=== PATIENT | male | born 1995 | race Hispanic/Latino ===

== ENCOUNTER 2016-10-16 03:47 | Emergency (ER) | payer OTHER ==
[2016-10-16 04:54] LABS: BASO % 0.2 % (0.0-1.0); EOS # 0.2 K/mm3 (0.0-0.50); EOS % 1.5 % (0.0-3.0); LARGE UNSTAINED CELL # 0.1 K/mm3 (0.0-0.4); LYMPH # 0.4 K/mm3 (1.5-6.5); MEAN CORPUSCULAR HEMOGLOBIN 29.3 pg (27.0-33.0); MEAN CORPUSCULAR VOLUME 86.3 fl (80.0-96.0); MONO # 0.5 K/mm3 (0.0-0.8); MONO % 4.2 % (0.0-5.0); NEUTROPHILS # 9.4 K/mm3 (1.8-7.7); NEUTROPHILS % 89.1 % (36.0-66.0); PLATELET COUNT, AUTOMATED 297 k/mm3 (150-450); RED CELL DISTRIBUTION WIDTH 12.1 % (11.5-14.5); WHITE BLOOD COUNT 10.6 K/mm3 (4.0-10.0)
[2016-10-16 05:57] LABS: ALBUMIN 3.8 GM/DL (3.2-5.2); ALBUMIN/GLOBULIN RATIO 1.09 (1.00-1.93); ALKALINE PHOSPHATASE 101 U/L (45-117); ALT/SGPT 42 U/L (12-78); AMYLASE 59 U/L (25-115); ANION GAP 11 MEQ/L (8-16); AST/SGOT 29 U/L (15-37); BILIRUBIN,DIRECT 0.2 MG/DL (0.0-0.2); BILIRUBIN,TOTAL 0.7 MG/DL (0.2-1.0); BLOOD UREA NITROGEN 20 MG/DL (7-18); CALCIUM LEVEL 8.8 MG/DL (8.5-10.1); CARBON DIOXIDE LEVEL 24 MEQ/L (21-32); CHLORIDE LEVEL 106 MEQ/L (98-107); CREATININE FOR GFR 0.96 MG/DL (0.70-1.30); GLUCOSE, FASTING 108 MG/DL (70-105); POTASSIUM SERUM 4.2 MEQ/L (3.5-5.1); SODIUM LEVEL 141 MEQ/L (136-145); TOTAL PROTEIN 7.3 GM/DL (6.4-8.2)
[2016-10-16] MEDS ORDERED: ONDANSETRON 4 MG ORAL DISINTEGRATING TAB (S0181) As Ordered ONE (07:10)
[2016-10-16] MEDS ORDERED: ACETAMINOPHEN TAB 650MG DOSE (2X325MG) As Ordered ONE (07:28)
[2016-10-16] MEDS ORDERED: GASTROGRAFIN SOLUTION 30ML (Q9963) As Ordered ONE (07:40)
[2016-10-16] MEDS ORDERED: ISOVUE-370 76% 100ML VIAL (Q9967) As Ordered ONE (09:04)
--- NOTE | 2016-10-16 10:14 | REP ---
CT abdomen and pelvis with IV and oral contrast 10/16/2016 Indication: Lower abdominal pain Comparison: None Technique: After drinking two cups of oral contrast, each containing 10 ml gastrographin, 100 ml Isovue 370 mg/ml was injected intravenously. 3 mm spiral axial sections were performed through the abdomen and pelvis Findings: small amount of parenchymal disease within the anterior medial aspect of the right middle lobe is consistent with atelectasis and/or scarring. Liver, spleen, pancreas, gallbladder are within normal limits. There is no biliary dilatation. Adrenal glands are normal. Kidneys are without hydronephrosis or obstructing ureteral calculi bilaterally. There is moderate gastric distension with stomach containing a large amount of oral contrast and small amount of air. The small bowel is without obstruction. There are multiple fluid-filled loops of small bowel , less than 3 cm in diameter. The terminal ileum and distal ileum are fluid-filled. The appendix is without inflammation . Abdominal aorta is of normal course and caliber. There are few ileocolic lymph nodes which are nonspecific. There is small amount of fluid and under distension seen throughout colon with minimal generalized mural thickening. There is an air-fluid level within the rectosigmoid colon. There is no free air or ascites. Impression 1. Findings most compatible with a gastroenteritis with gastric distension, fluid-filled loops of small bowel, under distended colon likely in spasm, with mild generalized mural thickening. There is also an air-fluid level in the rectosigmoid colon. No free air or ascites. 2. Unremarkable appendix and gallbladder 3. Parenchymal disease within the anterior medial aspect of right middle lobe most compatible with atelectasis and/or scarring Signed by Mirta Powell MD 10/16/2016 10:05 A
--- NOTE | 2016-10-16 10:26 | EDDOCDS ---
Nurse's Notes [facility] Name: Gary Chapman Age: 21 yrs Sex: Male : 1995 Arrival Date: 10/16/2016 Time: 03:47 Bed 12 Private MD: Diagnosis: Nausea and vomiting;Diarrhea, unspecified Presentation: 10/16 03:57 Presenting complaint: Patient states: he has had vomiting and diarrhea since last cz night. Risk factors: the patient reports not having a history of previous torsion. Adult Sepsis Screening: The patient does not have new or worsening altered mentation. Patient's respiratory rate is less than 22. Systolic blood pressure is greater than 100. Patient has a qSOFA score of 0- Negative Sepsis Screen. Suicide/Homicide risk assessment- the patient denies having any suicidal and/or homicidal ideations and does not present with any other emotional, behavioral or mental health complaints. 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 Transition of care: patient was not received from another setting of care. 03:57 Acuity: EPIFANIO Level 3 cz 03:57 Method Of Arrival: Walkin/Carried/Asstd cz Triage Assessment: 03:58 General: Appears distressed, uncomfortable. Pain: Location: abdomen Pain currently is 6 cz out of 10 on a pain scale. Pt Declines HIV testing. Historical: - Allergies: No known drug Allergies; - Home Meds: 1. none - PMHx: none; - PSHx: none; - Social history: Smoking status: Patient states was never smoker of tobacco. No barriers to communication noted, The patient speaks fluent Serbian, Speaks appropriately for age. - Family history: Not pertinent, No immediate family members are acutely ill. - : The pt / caregiver states he / she is not on anticoagulants. Home medication list is obtained from the patient. - Exposure Risk Screening:: None identified. Screenin:46 Screening information is obtained from the patient. Fall risk: No risks identified. mlc Assistance ADL's: requires no assistance with activities of daily living. Abuse/DV Screen: The patient / caregiver reports he/she is: not in a situation that causes fear, pain or injury. Nutritional screening: No deficits noted. Advance Directives: Currently, there is no health care proxy. home support is adequate. Assessment: 05:03 General: Appears in no apparent distress, comfortable, Behavior is cooperative. Pain: mlc Location: abdomen Quality of pain is described as pressure. Neurological: Level of Consciousness is awake, alert, Oriented to person, place, time. Respiratory: Airway is patent Respiratory effort is even, unlabored, Respiratory pattern is regular, Breath sounds are diminished in left posterior lower lobe Reports cough that is productive. GI: Abdomen is non- distended Bowel sounds present X 4 quads. Abd is soft X 4 quads Reports diarrhea, nausea, vomiting. Derm: Skin is pink, warm & dry. 06:46 Reassessment: Patient appears in no apparent distress at this time. Patient states mlc symptoms have not improved. pt resting comfortably in bed, resp easy/unlabored. . 07:20 General: Appears in no apparent distress, comfortable, Behavior is appropriate for age, ja5 cooperative. Pain: Location: right lower quadrant and left lower quadrant Pain currently is 3 out of 10 on a pain scale. Quality of pain is described as pressure. Neurological: Level of Consciousness is alert, confused, Oriented to person, place, time. Cardiovascular: Capillary refill < 3 seconds Heart tones S1 S2 present. Respiratory: Airway is patent Respiratory effort is even, unlabored, Respiratory pattern is symmetrical, Breath sounds are clear bilaterally. GI: Abdomen is non- distended Bowel sounds present X 4 quads. Abd is soft X 4 quads Denies nausea. Derm: Skin is pink, warm & dry. 08:26 General: Pt resting on stretcher. No distress noted at this time. Color pink, skin warm jc4 and dry. Respirations easy and full. IVF infusing well. Pt watching television. Pt tolerating contrast well. 09:28 General: Patient just returned from CT, tolerated procedure well. Back in room with no ja5 complaints at this time.. 10:23 General: Appears in no apparent distress, comfortable, Behavior is cooperative. Pain: bcj Location: abdomen Pain currently is 2 out of 10 on a pain scale. Derm: Skin is pink, warm & dry. Vital Signs: 03:58 BP 110 / 66; Pulse 112; Resp 16; Temp 99.8(TE); Pulse Ox 96% on R/A; Weight 74.39 kg; cz Height 5 ft. 5 in. (165.10 cm); 07:16 BP 99 / 50; Pulse 96; Resp 16; Temp 101(O); Pulse Ox 95% ; Pain 3/10; ja5 08:44 BP 106 / 54; Pulse 98; Resp 16; Temp 98.5(O); Pulse Ox 99% ; Pain 0/10; ja5 10:21 BP 106 / 52 RA Supine (auto/lg); Pulse 90; Resp 16; Temp 98.7(O); Pulse Ox 96% on R/A; tk Pain 0/10; 03:58 Body Mass Index 27.29 (74.39 kg, 165.10 cm) cz Vitals: 03:58 Log In Time: October 16, 2016 at 03:47. cz ED Course: 03:48 Patient visited by Karely Covington. gjb 03:48 Patient moved to Waiting gjb 03:57 Triage Initiated cz 04:00 Noris Wilson RN is Primary Nurse. cz 04:00 Patient moved to 12 cz 04:49 Amylase Sent. rw1 04:49 Basic Metabolic Profile Sent. rw1 04:49 CBC with Diff Sent. rw1 04:49 Lipase Sent. rw1 04:49 Liver Profile Sent. rw1 04:49 Inserted saline lock: 20 gauge in left antecubital area and blood collected. The rw1 patient tolerated the procedure well. 04:53 Urinalysis Sent. rw1 04:53 Urine Culture Sent. rw1 05:04 Patient visited by Noris Wilson RN. mlc 06:24 Patient visited by Nicky Lange PCA. stephanie 06:47 Patient visited by Noris Wilson RN. mlc 06:57 Demetris Grant MD is Attending Physician. br1 07:04 Patient visited by Demetris Grant MD. br1 07:07 Maryuri Serrano,LUCIO is Primary Nurse. ja5 07:11 Primary Nurse role handed off by Noris Wilson RN ar3 07:12 Jessica [facility] [place]erral Physician. br1 07:22 Daniella Angulo, LUCIO is Primary Nurse. jc4 07:34 Patient visited by Maryuri Serrano RN. ja5 08:26 Patient visited by Daniella Angulo, LUCIO. jc4 08:45 Patient visited by Maryuri Serrano RN. ja5 09:25 Patient visited by Maryuri Serrano RN. ja5 09:43 Patient name changed from Gary\S\\S\Chapman\S\ to Gary\S\ \S\Chapman. EDMS 09:43 [facility] Payment Agreement was scanned into [employer] and attached to record. lg 10:09 Patient visited by Demetris Grant MD. br1 10:10 Jessica [facility] [place] Referral Physician. br1 10:18 CT ABD & PELVIS: IV and Oral Contrast Returned. EDMS 10:22 Patient visited by Lasha Gallego. tk 10:23 No apparent distress. Resting quietly. Awaiting disposition. bcj 10:23 The patient / caregiver is instructed regarding the plan of care and ED course. Patient j has correct armband on for positive identification. Placed in gown. Bed in low position. Call light in reach. 10:23 Discontinued lock intact. No procedures done that require assistance. bcj 10:26 Patient visited by Anthony Cadena RN. [facility] Administered Medications: 07:19 Drug: Ondansetron ODT 4 mg [ondansetron 4 mg disintegrating tablet (1 tabs)] Route: PO; ja5 07:24 Drug: NS 0.9% 1000 ml [sodium chloride 0.9 % intravenous solution] Route: IV; Rate: jc4 bolus; Site: left antecubital; 09:20 Follow up: IV Status: Completed infusion; IV Intake: 1000ml jc4 07:36 Drug: Acetaminophen 650 mg [acetaminophen 325 mg tablet (2 tabs)] Route: PO; jc4 08:44 Follow up: BP 106 / 54; Pulse 98 bpm; Resp 16 bpm; Temp 98.5 Oral; Pulse Ox 99% ; Pain ja5 0/10 Adult 07:50 Drug: Diatrizoate Meglumine & Sodium 10 ml [diatrizoate meglumine and diat.sodium 66 jc4 %-10 % oral solution (10 mL)] Route: PO; 08:25 Drug: Diatrizoate Meglumine & Sodium 10 ml [diatrizoate meglumine and diat.sodium 66 jc4 %-10 % oral solution (10 mL)] Route: PO; 09:19 Drug: NS 0.9% 1000 ml [sodium chloride 0.9 % intravenous solution] Route: IV; Rate: 150 jc4 mL/hr; Site: left antecubital; Intake: 07:45 PO: 300.00ml (Contrast); Total: 300.00ml. jc4 08:15 PO: 300.00ml (Contrast); Total: 600.00ml. jc4 09:20 IV: 1000.00ml; Total: 1600.00ml. jc4 Order Results: Lab Order: Amylase; SPEC10/16/16 05:20 Test: AMYLASE; Value: 59; Range: 25-115; Units: U/L; Status: F Lab Order: Basic Metabolic Profile; SPEC10/16/16 05:20 Test: GLUCOSE, FASTING; Value: 108; Range: 70-105; Abnormal: Above high normal; Units: MG/DL; Status: F Test: BLOOD UREA NITROGEN; Value: 20; Range: 7-18; Abnormal: Above high normal; Units: MG/DL; Status: F Test: CREATININE FOR GFR; Value: 0.96; Range: 0.70-1.30; Units: MG/DL; Status: F Test: SODIUM LEVEL; Value: 141; Range: 136-145; Units: MEQ/L; Status: F Test: POTASSIUM SERUM; Value: 4.2; Range: 3.5-5.1; Units: MEQ/L; Status: F Test: CHLORIDE LEVEL; Value: 106; Range: 98-107; Units: MEQ/L; Status: F Test: CARBON DIOXIDE LEVEL; Value: 24; Range: 21-32; Units: MEQ/L; Status: F Test: ANION GAP; Value: 11; Range: 8-16; Units: MEQ/L; Status: F Test: CALCIUM LEVEL; Value: 8.8; Range: 8.5-10.1; Units: MG/DL; Status: F Lab Order: CBC with Diff; SPEC10/16/16 04:46 Test: WHITE BLOOD COUNT; Value: 10.6; Range: 4.0-10.0; Abnormal: Above high normal; Units: K/mm3; Status: F Test: RED BLOOD COUNT; Value: 5.63; Range: 4.30-6.10; Units: M/mm3; Status: F Test: HEMOGLOBIN; Value: 16.5; Range: 14.0-18.0; Units: g/dl; Status: F Test: HEMATOCRIT; Value: 48.5; Range: 42.0-52.0; Units: %; Status: F Test: MEAN CORPUSCULAR VOLUME; Value: 86.3; Range: 80.0-96.0; Units: fl; Status: F Test: MEAN CORPUSCULAR HEMOGLOBIN; Value: 29.3; Range: 27.0-33.0; Units: pg; Status: F Test: MEAN CORPUSCULAR HGB CONC; Value: 34.0; Range: 32.0-36.5; Units: g/dl; Status: F Test: RED CELL DISTRIBUTION WIDTH; Value: 12.1; Range: 11.5-14.5; Units: %; Status: F Test: PLATELET COUNT, AUTOMATED; Value: 297; Range: 150-450; Units: k/mm3; Status: F Test: NEUTROPHILS %; Value: 89.1; Range: 36.0-66.0; Abnormal: Above high normal; Units: %; Status: F Test: LYMPH %; Value: 4.0; Range: 24.0-44.0; Abnormal: Below low normal; Units: %; Status: F Test: MONO %; Value: 4.2; Range: 0.0-5.0; Units: %; Status: F Test: EOS %; Value: 1.5; Range: 0.0-3.0; Units: %; Status: F Test: BASO %; Value: 0.2; Range: 0.0-1.0; Units: %; Status: F Test: LARGE UNSTAINED CELL %; Value: 1.0; Range: 0.0-4.0; Units: %; Status: F Test: NEUTROPHILS #; Value: 9.4; Range: 1.8-7.7; Abnormal: Above high normal; Units: K/mm3; Status: F Test: LYMPH #; Value: 0.4; Range: 1.5-6.5; Abnormal: Below low normal; Units: K/mm3; Status: F Test: MONO #; Value: 0.5; Range: 0.0-0.8; Units: K/mm3; Status: F Test: EOS #; Value: 0.2; Range: 0.0-0.50; Units: K/mm3; Status: F Test: BASO #; Value: 0.0; Range: 0.0-0.2; Units: K/mm3; Status: F Test: LARGE UNSTAINED CELL #; Value: 0.1; Range: 0.0-0.4; Units: K/mm3; Status: F Lab Order: Lipase; SPEC'M 10/16/16 05:20 Test: LIPASE; Value: 70; Range: 73-393; Abnormal: Below low normal; Units: U/L; Status: F Lab Order: Liver Profile; SPEC'M 10/16/16 05:20 Test: AST/SGOT; Value: 29; Range: 15-37; Units: U/L; Status: F Test: ALT/SGPT; Value: 42; Range: 12-78; Units: U/L; Status: F Test: ALKALINE PHOSPHATASE; Value: 101; Range: 45-117; Units: U/L; Status: F Test: BILIRUBIN,TOTAL; Value: 0.7; Range: 0.2-1.0; Units: MG/DL; Status: F Test: BILIRUBIN,DIRECT; Value: 0.2; Range: 0.0-0.2; Units: MG/DL; Status: F Test: TOTAL PROTEIN; Value: 7.3; Range: 6.4-8.2; Units: GM/DL; Status: F Test: ALBUMIN; Value: 3.8; Range: 3.2-5.2; Units: GM/DL; Status: F Test: ALBUMIN/GLOBULIN RATIO; Value: 1.09; Range: 1.00-1.93; Status: F Lab Order: Urinalysis; SPEC'M 10/16/16 04:52 Test: APPEARANCE, URINE; Value: CLEAR; Range: CLEAR; Status: F Test: COLOR, URINE; Value: YELLOW; Range: YELLOW; Status: F Test: PH,URINE; Value: 7.0; Range: 5.0-9.0; Units: UNITS; Status: F Test: SPECIFIC GRAVITY URINE AUTO; Value: 1.025; Range: 1.002-1.035; Status: F Test: PROTEIN, URINE AUTO; Value: 1+; Range: NEGATIVE; Abnormal: Above high normal; Units: mg/dL; Status: F Test: GLUCOSE, URINE (UA) AUTO; Value: NEGATIVE; Range: NEGATIVE; Units: mg/dL; Status: F Test: KETONE, URINE AUTO; Value: NEGATIVE; Range: NEGATIVE; Units: mg/dL; Status: F Test: UROBILINOGEN, URINE AUTO; Value: 0.2; Range: 0.0-2.0; Units: mg/dL; Status: F Test: BILIRUBIN, URINE AUTO; Value: NEGATIVE; Range: NEGATIVE; Status: F Test: NITRITE, URINE AUTO; Value: NEGATIVE; Range: NEGATIVE; Status: F Test: LEUKOCYTE ESTERASE, URINE AUTO; Value: NEGATIVE; Range: NEGATIVE; Status: F Test: BLOOD, URINE BLOOD; Value: NEGATIVE; Range: NEGATIVE; Status: F Test: WBC, URINE AUTO; Value: 1; Range: 0-3; Units: /HPF; Status: F Test: RBC, URINE AUTO; Value: 3; Range: 0-3; Units: /HPF; Status: F Test: BACTERIA, URINE AUTO; Value: NEGATIVE; Range: NEGATIVE; Status: F Test: SQUAMOUS EPITHELIAL CELL UR AU; Value: 0; Range: 0-6; Units: /HPF; Status: F Test: MUCUS, URINE; Value: SMALL; Range: NEGATIVE; Status: F Test: HYALINE CAST, URINE AUTO; Value: 0; Range: 0-1; Units: /LPF; Status: F Radiology Order: CT ABD & PELVIS: IV and Oral Contrast Test: CT ABD & PELVIS: IV and Oral Contrast REASON FOR EXAMINATION: Abdomen Pain; CT abdomen and pelvis with IV and oral contrast 10/16/2016; ; Indication: Lower abdominal pain; ; Comparison: None; ; Technique: After drinking two cups of oral contrast, each containing 10 ml; gastrographin, 100 ml Isovue 370 mg/ml was injected intravenously. 3 mm spiral; axial sections were performed through the abdomen and pelvis; ; Findings: small amount of parenchymal disease within the anterior medial aspect; of the right middle lobe is consistent with atelectasis and/or scarring.; ; Liver, spleen, pancreas, gallbladder are within normal limits. There is no; biliary dilatation. Adrenal glands are normal. Kidneys are without; hydronephrosis or obstructing ureteral calculi bilaterally. There is moderate; gastric distension with stomach containing a large amount of oral contrast and; small amount of air. The small bowel is without obstruction. There are multiple; fluid-filled loops of small bowel , less than 3 cm in diameter. The terminal; ileum and distal ileum are fluid-filled. The appendix is without inflammation .; Abdominal aorta is of normal course and caliber. There are few ileocolic lymph; nodes which are nonspecific. There is small amount of fluid and under distension; seen throughout colon with minimal generalized mural thickening. There is an; air-fluid level within the rectosigmoid colon. There is no free air or ascites.; ; Impression; 1. Findings most compatible with a gastroenteritis with gastric distension,; fluid-filled loops of small bowel, under distended colon likely in spasm, with; mild generalized mural thickening. There is also an air-fluid level in the; rectosigmoid colon. No free air or ascites.; 2. Unremarkable appendix and gallbladder; ; 3. Parenchymal disease within the anterior medial aspect of right middle lobe; most compatible with atelectasis and/or scarring; ; ; Signed by; Mirta Powell MD 10/16/2016 10:05 A; Outcome: 07:13 Discharge ordered by Provider. br1 10:10 Discharge ordered by Provider. br1 10:23 Discharge Assessment: patient administered narcotics - yes. The following High Risk [facility] Discharge criteria are identified: None. Discharged to home ambulatory, with friend. Condition: stable. Discharge instructions given to patient, Instructed on discharge instructions, follow up and referral plans. medication usage, Prescriptions given X 1. CT Study completed. Property :Personal belongings accompany Pt. 10:26 Patient left the ED. [facility] Signatures: Dispatcher [employer] EDAnthony Conrad RN RN bcj Zecher, Calvin, RN RN cz Ganter, LoriLee, Reg Reg lg Rodger Thapa,DUCK OPERATOR DUCK OPERATOR rw1 Demetris Grant MD MD br1 Rita Alvarenga, PLANNING LEAD PLANNING LEAD ar3 Daniella Angulo RN RN jc4 Nicky Lange, PLANNING LEAD PLANNING LEAD Noris Tejada,RN Lasha Bangura Gabriela gjb Anderson, JessicaRN RN aung5 MTDD
--- NOTE | 2016-10-16 10:26 | EDDOCDS ---
Physician Documentation [facility] Name: Gary Chapman Age: 21 yrs Sex: Male : 1995 Arrival Date: 10/16/2016 Time: 03:47 Bed 12 Private MD: Disposition: 10/16/16 10:10 Discharged to Home/Self Care. Impression: Nausea and vomiting, Diarrhea, unspecified. - Condition is Stable. - Discharge Instructions: Diarrhea, Nausea and Vomiting. - Prescriptions for ZOFRAN ODT 4 mg - dissolve 1 tablet by ORAL route 4 times per day As needed do not chew, do not swallow whole; 10 tablet. - Medication Reconciliation, Local Pharmacy Hours form. - Follow up: MOISES Lopez; When: 2 - 3 days; Reason: Recheck today's complaints. - Problem is new. - Symptoms have improved. - Notes: You were seen in the ED for nausea, vomiting and diarrhea concerning for a gastroenteritis or possible viral illness. Bloodwork along with urine tests showed no other acute findings. You may continue the nausea medicine Zofran as needed. Encourage plenty of clear liquids to maintain hydration.Once tolerating liquids begin a dry bland diet and advance as tolerated. Call your primary doctor at [facility] to arrange to be seen for recheck this week. Return to the ED for any abdominal pain, fever, inability to tolerate oral foods or liquids, blood in the vomit or stool or any other concerns. Historical: - Allergies: No known drug Allergies; - Home Meds: 1. none - PMHx: none; - PSHx: none; - Social history: Smoking status: Patient states was never smoker of tobacco. No barriers to communication noted, The patient speaks fluent Indian, Speaks appropriately for age. - Family history: Not pertinent, No immediate family members are acutely ill. - : The pt / caregiver states he / she is not on anticoagulants. Home medication list is obtained from the patient. - Exposure Risk Screening:: None identified. Vital Signs: 10/16 03:58 BP 110 / 66; Pulse 112; Resp 16; Temp 99.8(TE); Pulse Ox 96% on R/A; Weight 74.39 kg / cz 164 lbs; Height 5 ft. 5 in. (165.10 cm); 07:16 BP 99 / 50; Pulse 96; Resp 16; Temp 101(O); Pulse Ox 95% ; Pain 3/10; ja5 08:44 BP 106 / 54; Pulse 98; Resp 16; Temp 98.5(O); Pulse Ox 99% ; Pain 0/10; ja5 10:21 BP 106 / 52 RA Supine (auto/lg); Pulse 90; Resp 16; Temp 98.7(O); Pulse Ox 96% on R/A; tk Pain 0/10; 03:58 Body Mass Index 27.29 (74.39 kg, 165.10 cm) cz MDM: 04:07 Undress patient appropriately for examination ordered. sep 04:07 IV Saline Lock ordered. sep 04:08 Amylase Ordered. EDMS 04:08 Basic Metabolic Profile Ordered. EDMS 04:08 CBC with Diff Ordered. EDMS 04:08 Lipase Ordered. EDMS 04:08 Liver Profile Ordered. EDMS 04:08 Urinalysis Ordered. EDMS 04:08 Urine Culture Ordered. EDMS 04:08 NOTHING BY MOUTH+DIET ordered. EDMS 07:05 Ondansetron ODT Oral Disintegrating Tablet 4 mg PO once ordered. br1 07:08 Recheck Vital Signs, perform reassessment and enter into Njuice ordered. br1 07:10 Basic Metabolic Profile Reviewed. br1 07:10 CBC with Diff Reviewed. br1 07:10 Lipase Reviewed. br1 07:10 Urinalysis Reviewed. br1 07:10 Amylase Reviewed. br1 07:10 Liver Profile Reviewed. br1 07:24 NS 0.9% 1000 ml IV at bolus once ordered. br1 07:24 Acetaminophen Tablet 650 mg PO once ordered. br1 07:26 NS 0.9% 1000 ml IV at 150 mL/hr continuous ordered. br1 07:26 CT ABD & PELVIS: IV and Oral Contrast Ordered. EDMS 07:33 Diatrizoate Meglumine & Sodium Liquid 10 ml PO once; mix in 290cc of water, administer jc4 dose \T\ 0745 ordered. 07:33 Diatrizoate Meglumine & Sodium Liquid 10 ml PO once; mix in 290cc of water, administer jc4 dose \T\ 0815 ordered. 08:54 Financial registration complete. lg 09:43 [facility] Payment Agreement was scanned into [employer] and attached to record. lg Administered Medications: 07:19 Drug: Ondansetron ODT 4 mg [ondansetron 4 mg disintegrating tablet (1 tabs)] Route: PO; ja5 07:24 Drug: NS 0.9% 1000 ml [sodium chloride 0.9 % intravenous solution] Route: IV; Rate: jc4 bolus; Site: left antecubital; 09:20 Follow up: IV Status: Completed infusion; IV Intake: 1000ml jc4 07:36 Drug: Acetaminophen 650 mg [acetaminophen 325 mg tablet (2 tabs)] Route: PO; jc4 08:44 Follow up: BP 106 / 54; Pulse 98 bpm; Resp 16 bpm; Temp 98.5 Oral; Pulse Ox 99% ; Pain ja5 0/10 Adult 07:50 Drug: Diatrizoate Meglumine & Sodium 10 ml [diatrizoate meglumine and diat.sodium 66 jc4 %-10 % oral solution (10 mL)] Route: PO; 08:25 Drug: Diatrizoate Meglumine & Sodium 10 ml [diatrizoate meglumine and diat.sodium 66 jc4 %-10 % oral solution (10 mL)] Route: PO; 09:19 Drug: NS 0.9% 1000 ml [sodium chloride 0.9 % intravenous solution] Route: IV; Rate: 150 jc4 mL/hr; Site: left antecubital; Signatures: Dispatcher [employer] EDAnthony Conrad RN RN bcj Newman, LUCIO Coe RN, Calvin, RN RN cz Ganter, LoriLee, Reg Reg lg Demetris Grant MD MD brDaniella Quispe RN RN jc4 Noris Wilson RN RN mlc Anderson, Jessica RN ja5 The chart was reviewed and I authenticate all verbal orders and agree with the evaluation and treatment provided.Corrections: (The following items were deleted from the chart) 07:30 07:05 Fluid Challenge ordered. br1 jc4 Attachments: 09:43 [facility] Payment Agreement lg MTDD
--- NOTE | 2016-10-18 11:26 | EDDOCDS ---
Physician Documentation [facility] Name: Gary Chapman Age: 21 yrs Sex: Male : 1995 Arrival Date: 10/16/2016 Time: 03:47 Bed 12 Private MD: Disposition: 10/16/16 10:10 Discharged to Home/Self Care. Impression: Nausea and vomiting, Diarrhea, unspecified. - Condition is Stable. - Discharge Instructions: Diarrhea, Nausea and Vomiting. - Prescriptions for ZOFRAN ODT 4 mg - dissolve 1 tablet by ORAL route 4 times per day As needed do not chew, do not swallow whole; 10 tablet. - Medication Reconciliation, Local Pharmacy Hours form. - Follow up: MOISES Lopez; When: 2 - 3 days; Reason: Recheck today's complaints. - Problem is new. - Symptoms have improved. - Notes: You were seen in the ED for nausea, vomiting and diarrhea concerning for a gastroenteritis or possible viral illness. Bloodwork along with urine tests showed no other acute findings. You may continue the nausea medicine Zofran as needed. Encourage plenty of clear liquids to maintain hydration.Once tolerating liquids begin a dry bland diet and advance as tolerated. Call your primary doctor at [facility] to arrange to be seen for recheck this week. Return to the ED for any abdominal pain, fever, inability to tolerate oral foods or liquids, blood in the vomit or stool or any other concerns. Historical: - Allergies: No known drug Allergies; - Home Meds: 1. none - PMHx: none; - PSHx: none; - Social history: Smoking status: Patient states was never smoker of tobacco. No barriers to communication noted, The patient speaks fluent Grenadian, Speaks appropriately for age. - Family history: Not pertinent, No immediate family members are acutely ill. - : The pt / caregiver states he / she is not on anticoagulants. Home medication list is obtained from the patient. - Exposure Risk Screening:: None identified. Vital Signs: 10/16 03:58 BP 110 / 66; Pulse 112; Resp 16; Temp 99.8(TE); Pulse Ox 96% on R/A; Weight 74.39 kg / cz 164 lbs; Height 5 ft. 5 in. (165.10 cm); 07:16 BP 99 / 50; Pulse 96; Resp 16; Temp 101(O); Pulse Ox 95% ; Pain 3/10; ja5 08:44 BP 106 / 54; Pulse 98; Resp 16; Temp 98.5(O); Pulse Ox 99% ; Pain 0/10; ja5 10:21 BP 106 / 52 RA Supine (auto/lg); Pulse 90; Resp 16; Temp 98.7(O); Pulse Ox 96% on R/A; tk Pain 0/10; 03:58 Body Mass Index 27.29 (74.39 kg, 165.10 cm) cz MDM: 04:07 Undress patient appropriately for examination ordered. sep 04:07 IV Saline Lock ordered. sep 04:08 Amylase Ordered. EDMS 04:08 Basic Metabolic Profile Ordered. EDMS 04:08 CBC with Diff Ordered. EDMS 04:08 Lipase Ordered. EDMS 04:08 Liver Profile Ordered. EDMS 04:08 Urinalysis Ordered. EDMS 04:08 Urine Culture Ordered. EDMS 04:08 NOTHING BY MOUTH+DIET ordered. EDMS 07:05 Ondansetron ODT Oral Disintegrating Tablet 4 mg PO once ordered. br1 07:08 Recheck Vital Signs, perform reassessment and enter into Pixsta ordered. br1 07:10 Basic Metabolic Profile Reviewed. br1 07:10 CBC with Diff Reviewed. br1 07:10 Lipase Reviewed. br1 07:10 Urinalysis Reviewed. br1 07:10 Amylase Reviewed. br1 07:10 Liver Profile Reviewed. br1 07:24 NS 0.9% 1000 ml IV at bolus once ordered. br1 07:24 Acetaminophen Tablet 650 mg PO once ordered. br1 07:26 NS 0.9% 1000 ml IV at 150 mL/hr continuous ordered. br1 07:26 CT ABD & PELVIS: IV and Oral Contrast Ordered. EDMS 07:33 Diatrizoate Meglumine & Sodium Liquid 10 ml PO once; mix in 290cc of water, administer jc4 dose \T\ 0745 ordered. 07:33 Diatrizoate Meglumine & Sodium Liquid 10 ml PO once; mix in 290cc of water, administer jc4 dose \T\ 0815 ordered. 08:54 Financial registration complete. lg 09:43 [facility] [place] Agreement was scanned into [employer] and attached to record. lg 21:04 T-Sheet-- Draft Copy was scanned into [employer] and attached to record. klr Administered Medications: 07:19 Drug: Ondansetron ODT 4 mg [ondansetron 4 mg disintegrating tablet (1 tabs)] Route: PO; ja5 07:24 Drug: NS 0.9% 1000 ml [sodium chloride 0.9 % intravenous solution] Route: IV; Rate: jc4 bolus; Site: left antecubital; 09:20 Follow up: IV Status: Completed infusion; IV Intake: 1000ml jc4 07:36 Drug: Acetaminophen 650 mg [acetaminophen 325 mg tablet (2 tabs)] Route: PO; jc4 08:44 Follow up: BP 106 / 54; Pulse 98 bpm; Resp 16 bpm; Temp 98.5 Oral; Pulse Ox 99% ; Pain ja5 0/10 Adult 07:50 Drug: Diatrizoate Meglumine & Sodium 10 ml [diatrizoate meglumine and diat.sodium 66 jc4 %-10 % oral solution (10 mL)] Route: PO; 08:25 Drug: Diatrizoate Meglumine & Sodium 10 ml [diatrizoate meglumine and diat.sodium 66 jc4 %-10 % oral solution (10 mL)] Route: PO; 09:19 Drug: NS 0.9% 1000 ml [sodium chloride 0.9 % intravenous solution] Route: IV; Rate: 150 jc4 mL/hr; Site: left antecubital; Signatures: Dispatcher [employer] EDMS Anthony Cadena RN RN bcj Newman, LUCIO Coe RN, Calvin, RN RN cz Ganter, LoriLee, Reg Reg Demetris Grant MD MD brDaniella Quispe RN RN jc4 Booth, Mandy, RN RN mlc Redder, Kathie klr Anderson, Jessica RN ja5 The chart was reviewed and I authenticate all verbal orders and agree with the evaluation and treatment provided.Corrections: (The following items were deleted from the chart) 07:30 07:05 Fluid Challenge ordered. br1 jc4 Attachments: 09:43 [facility] Payment Agreement lg 21:04 T-Sheet-- Draft Copy r Chart Complete MTDD
--- NOTE | 2016-10-18 11:27 | EDDOCDS ---
Nurse's Notes [facility] Name: Gary Chapman Age: 21 yrs Sex: Male : 1995 Arrival Date: 10/16/2016 Time: 03:47 Bed 12 Private MD: Diagnosis: Nausea and vomiting;Diarrhea, unspecified Presentation: 10/16 03:57 Presenting complaint: Patient states: he has had vomiting and diarrhea since last cz night. Risk factors: the patient reports not having a history of previous torsion. Adult Sepsis Screening: The patient does not have new or worsening altered mentation. Patient's respiratory rate is less than 22. Systolic blood pressure is greater than 100. Patient has a qSOFA score of 0- Negative Sepsis Screen. Suicide/Homicide risk assessment- the patient denies having any suicidal and/or homicidal ideations and does not present with any other emotional, behavioral or mental health complaints. 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 Transition of care: patient was not received from another setting of care. 03:57 Acuity: EPIFANIO Level 3 cz 03:57 Method Of Arrival: Walkin/Carried/Asstd cz Triage Assessment: 03:58 General: Appears distressed, uncomfortable. Pain: Location: abdomen Pain currently is 6 cz out of 10 on a pain scale. Pt Declines HIV testing. Historical: - Allergies: No known drug Allergies; - Home Meds: 1. none - PMHx: none; - PSHx: none; - Social history: Smoking status: Patient states was never smoker of tobacco. No barriers to communication noted, The patient speaks fluent Hungarian, Speaks appropriately for age. - Family history: Not pertinent, No immediate family members are acutely ill. - : The pt / caregiver states he / she is not on anticoagulants. Home medication list is obtained from the patient. - Exposure Risk Screening:: None identified. Screenin:46 Screening information is obtained from the patient. Fall risk: No risks identified. mlc Assistance ADL's: requires no assistance with activities of daily living. Abuse/DV Screen: The patient / caregiver reports he/she is: not in a situation that causes fear, pain or injury. Nutritional screening: No deficits noted. Advance Directives: Currently, there is no health care proxy. home support is adequate. Assessment: 05:03 General: Appears in no apparent distress, comfortable, Behavior is cooperative. Pain: mlc Location: abdomen Quality of pain is described as pressure. Neurological: Level of Consciousness is awake, alert, Oriented to person, place, time. Respiratory: Airway is patent Respiratory effort is even, unlabored, Respiratory pattern is regular, Breath sounds are diminished in left posterior lower lobe Reports cough that is productive. GI: Abdomen is non- distended Bowel sounds present X 4 quads. Abd is soft X 4 quads Reports diarrhea, nausea, vomiting. Derm: Skin is pink, warm & dry. 06:46 Reassessment: Patient appears in no apparent distress at this time. Patient states mlc symptoms have not improved. pt resting comfortably in bed, resp easy/unlabored. . 07:20 General: Appears in no apparent distress, comfortable, Behavior is appropriate for age, ja5 cooperative. Pain: Location: right lower quadrant and left lower quadrant Pain currently is 3 out of 10 on a pain scale. Quality of pain is described as pressure. Neurological: Level of Consciousness is alert, confused, Oriented to person, place, time. Cardiovascular: Capillary refill < 3 seconds Heart tones S1 S2 present. Respiratory: Airway is patent Respiratory effort is even, unlabored, Respiratory pattern is symmetrical, Breath sounds are clear bilaterally. GI: Abdomen is non- distended Bowel sounds present X 4 quads. Abd is soft X 4 quads Denies nausea. Derm: Skin is pink, warm & dry. 08:26 General: Pt resting on stretcher. No distress noted at this time. Color pink, skin warm jc4 and dry. Respirations easy and full. IVF infusing well. Pt watching television. Pt tolerating contrast well. 09:28 General: Patient just returned from CT, tolerated procedure well. Back in room with no ja5 complaints at this time.. 10:23 General: Appears in no apparent distress, comfortable, Behavior is cooperative. Pain: bcj Location: abdomen Pain currently is 2 out of 10 on a pain scale. Derm: Skin is pink, warm & dry. Vital Signs: 03:58 BP 110 / 66; Pulse 112; Resp 16; Temp 99.8(TE); Pulse Ox 96% on R/A; Weight 74.39 kg; cz Height 5 ft. 5 in. (165.10 cm); 07:16 BP 99 / 50; Pulse 96; Resp 16; Temp 101(O); Pulse Ox 95% ; Pain 3/10; ja5 08:44 BP 106 / 54; Pulse 98; Resp 16; Temp 98.5(O); Pulse Ox 99% ; Pain 0/10; ja5 10:21 BP 106 / 52 RA Supine (auto/lg); Pulse 90; Resp 16; Temp 98.7(O); Pulse Ox 96% on R/A; tk Pain 0/10; 03:58 Body Mass Index 27.29 (74.39 kg, 165.10 cm) cz Vitals: 03:58 Log In Time: October 16, 2016 at 03:47. cz ED Course: 03:48 Patient visited by Karely Covington. gjb 03:48 Patient moved to Waiting gjb 03:57 Triage Initiated cz 04:00 Noris Wilson RN is Primary Nurse. cz 04:00 Patient moved to 12 cz 04:49 Amylase Sent. rw1 04:49 Basic Metabolic Profile Sent. rw1 04:49 CBC with Diff Sent. rw1 04:49 Lipase Sent. rw1 04:49 Liver Profile Sent. rw1 04:49 Inserted saline lock: 20 gauge in left antecubital area and blood collected. The rw1 patient tolerated the procedure well. 04:53 Urinalysis Sent. rw1 04:53 Urine Culture Sent. rw1 05:04 Patient visited by Noris Wilson RN. mlc 06:24 Patient visited by Nicky Lange PCA. stephanie 06:47 Patient visited by Noris Wilson RN. mlc 06:57 Demetris Grant MD is Attending Physician. br1 07:04 Patient visited by Demetris Grant MD. br1 07:07 Maryuri Serrano,LUCIO is Primary Nurse. ja5 07:11 Primary Nurse role handed off by Noris Wilson RN ar3 07:12 Jessica [facility] is Referral Physician. br1 07:22 Daniella Angulo, LUCIO is Primary Nurse. jc4 07:34 Patient visited by Maryuri Serrano RN. ja5 08:26 Patient visited by Daniella Angulo, LUCIO. jc4 08:45 Patient visited by Maryuri Serrano RN. ja5 09:25 Patient visited by Maryuri Serrano RN. ja5 09:43 Patient name changed from Gary\S\\S\Chapman\S\ to Gary\S\ \S\Chapman. EDMS 09:43 [facility] Payment Agreement was scanned into [employer] and attached to record. lg 10:09 Patient visited by Demetris Grant MD. br1 10:10 Jessica [facility] is Referral Physician. br1 10:18 CT ABD & PELVIS: IV and Oral Contrast Returned. EDMS 10:22 Patient visited by Lasha Gallego. tk 10:23 No apparent distress. Resting quietly. Awaiting disposition. bcj 10:23 The patient / caregiver is instructed regarding the plan of care and ED course. Patient bcj has correct armband on for positive identification. Placed in gown. Bed in low position. Call light in reach. 10:23 Discontinued lock intact. No procedures done that require assistance. bcj 10:26 Patient visited by Anthony Cadena RN. bcj 21:04 T-Sheet-- Draft Copy was scanned into [employer] and attached to record. klr Administered Medications: 07:19 Drug: Ondansetron ODT 4 mg [ondansetron 4 mg disintegrating tablet (1 tabs)] Route: PO; ja5 07:24 Drug: NS 0.9% 1000 ml [sodium chloride 0.9 % intravenous solution] Route: IV; Rate: jc4 bolus; Site: left antecubital; 09:20 Follow up: IV Status: Completed infusion; IV Intake: 1000ml jc4 07:36 Drug: Acetaminophen 650 mg [acetaminophen 325 mg tablet (2 tabs)] Route: PO; jc4 08:44 Follow up: BP 106 / 54; Pulse 98 bpm; Resp 16 bpm; Temp 98.5 Oral; Pulse Ox 99% ; Pain ja5 0/10 Adult 07:50 Drug: Diatrizoate Meglumine & Sodium 10 ml [diatrizoate meglumine and diat.sodium 66 jc4 %-10 % oral solution (10 mL)] Route: PO; 08:25 Drug: Diatrizoate Meglumine & Sodium 10 ml [diatrizoate meglumine and diat.sodium 66 jc4 %-10 % oral solution (10 mL)] Route: PO; 09:19 Drug: NS 0.9% 1000 ml [sodium chloride 0.9 % intravenous solution] Route: IV; Rate: 150 jc4 mL/hr; Site: left antecubital; Intake: 07:45 PO: 300.00ml (Contrast); Total: 300.00ml. jc4 08:15 PO: 300.00ml (Contrast); Total: 600.00ml. jc4 09:20 IV: 1000.00ml; Total: 1600.00ml. jc4 Order Results: Lab Order: Amylase; SPEC'10/16/16 05:20 Test: AMYLASE; Value: 59; Range: 25-115; Units: U/L; Status: F Lab Order: Basic Metabolic Profile; SPEC'10/16/16 05:20 Test: GLUCOSE, FASTING; Value: 108; Range: 70-105; Abnormal: Above high normal; Units: MG/DL; Status: F Test: BLOOD UREA NITROGEN; Value: 20; Range: 7-18; Abnormal: Above high normal; Units: MG/DL; Status: F Test: CREATININE FOR GFR; Value: 0.96; Range: 0.70-1.30; Units: MG/DL; Status: F Test: SODIUM LEVEL; Value: 141; Range: 136-145; Units: MEQ/L; Status: F Test: POTASSIUM SERUM; Value: 4.2; Range: 3.5-5.1; Units: MEQ/L; Status: F Test: CHLORIDE LEVEL; Value: 106; Range: 98-107; Units: MEQ/L; Status: F Test: CARBON DIOXIDE LEVEL; Value: 24; Range: 21-32; Units: MEQ/L; Status: F Test: ANION GAP; Value: 11; Range: 8-16; Units: MEQ/L; Status: F Test: CALCIUM LEVEL; Value: 8.8; Range: 8.5-10.1; Units: MG/DL; Status: F Lab Order: CBC with Diff; SPEC10/16/16 04:46 Test: WHITE BLOOD COUNT; Value: 10.6; Range: 4.0-10.0; Abnormal: Above high normal; Units: K/mm3; Status: F Test: RED BLOOD COUNT; Value: 5.63; Range: 4.30-6.10; Units: M/mm3; Status: F Test: HEMOGLOBIN; Value: 16.5; Range: 14.0-18.0; Units: g/dl; Status: F Test: HEMATOCRIT; Value: 48.5; Range: 42.0-52.0; Units: %; Status: F Test: MEAN CORPUSCULAR VOLUME; Value: 86.3; Range: 80.0-96.0; Units: fl; Status: F Test: MEAN CORPUSCULAR HEMOGLOBIN; Value: 29.3; Range: 27.0-33.0; Units: pg; Status: F Test: MEAN CORPUSCULAR HGB CONC; Value: 34.0; Range: 32.0-36.5; Units: g/dl; Status: F Test: RED CELL DISTRIBUTION WIDTH; Value: 12.1; Range: 11.5-14.5; Units: %; Status: F Test: PLATELET COUNT, AUTOMATED; Value: 297; Range: 150-450; Units: k/mm3; Status: F Test: NEUTROPHILS %; Value: 89.1; Range: 36.0-66.0; Abnormal: Above high normal; Units: %; Status: F Test: LYMPH %; Value: 4.0; Range: 24.0-44.0; Abnormal: Below low normal; Units: %; Status: F Test: MONO %; Value: 4.2; Range: 0.0-5.0; Units: %; Status: F Test: EOS %; Value: 1.5; Range: 0.0-3.0; Units: %; Status: F Test: BASO %; Value: 0.2; Range: 0.0-1.0; Units: %; Status: F Test: LARGE UNSTAINED CELL %; Value: 1.0; Range: 0.0-4.0; Units: %; Status: F Test: NEUTROPHILS #; Value: 9.4; Range: 1.8-7.7; Abnormal: Above high normal; Units: K/mm3; Status: F Test: LYMPH #; Value: 0.4; Range: 1.5-6.5; Abnormal: Below low normal; Units: K/mm3; Status: F Test: MONO #; Value: 0.5; Range: 0.0-0.8; Units: K/mm3; Status: F Test: EOS #; Value: 0.2; Range: 0.0-0.50; Units: K/mm3; Status: F Test: BASO #; Value: 0.0; Range: 0.0-0.2; Units: K/mm3; Status: F Test: LARGE UNSTAINED CELL #; Value: 0.1; Range: 0.0-0.4; Units: K/mm3; Status: F Lab Order: Lipase; [facility] 10/16/16 05:20 Test: LIPASE; Value: 70; Range: 73-393; Abnormal: Below low normal; Units: U/L; Status: F Lab Order: Liver Profile; [facility] 10/16/16 05:20 Test: AST/SGOT; Value: 29; Range: 15-37; Units: U/L; Status: F Test: ALT/SGPT; Value: 42; Range: 12-78; Units: U/L; Status: F Test: ALKALINE PHOSPHATASE; Value: 101; Range: 45-117; Units: U/L; Status: F Test: BILIRUBIN,TOTAL; Value: 0.7; Range: 0.2-1.0; Units: MG/DL; Status: F Test: BILIRUBIN,DIRECT; Value: 0.2; Range: 0.0-0.2; Units: MG/DL; Status: F Test: TOTAL PROTEIN; Value: 7.3; Range: 6.4-8.2; Units: GM/DL; Status: F Test: ALBUMIN; Value: 3.8; Range: 3.2-5.2; Units: GM/DL; Status: F Test: ALBUMIN/GLOBULIN RATIO; Value: 1.09; Range: 1.00-1.93; Status: F Lab Order: Urinalysis; [facility] 10/16/16 04:52 Test: APPEARANCE, URINE; Value: CLEAR; Range: CLEAR; Status: F Test: COLOR, URINE; Value: YELLOW; Range: YELLOW; Status: F Test: PH,URINE; Value: 7.0; Range: 5.0-9.0; Units: UNITS; Status: F Test: SPECIFIC GRAVITY URINE AUTO; Value: 1.025; Range: 1.002-1.035; Status: F Test: PROTEIN, URINE AUTO; Value: 1+; Range: NEGATIVE; Abnormal: Above high normal; Units: mg/dL; Status: F Test: GLUCOSE, URINE (UA) AUTO; Value: NEGATIVE; Range: NEGATIVE; Units: mg/dL; Status: F Test: KETONE, URINE AUTO; Value: NEGATIVE; Range: NEGATIVE; Units: mg/dL; Status: F Test: UROBILINOGEN, URINE AUTO; Value: 0.2; Range: 0.0-2.0; Units: mg/dL; Status: F Test: BILIRUBIN, URINE AUTO; Value: NEGATIVE; Range: NEGATIVE; Status: F Test: NITRITE, URINE AUTO; Value: NEGATIVE; Range: NEGATIVE; Status: F Test: LEUKOCYTE ESTERASE, URINE AUTO; Value: NEGATIVE; Range: NEGATIVE; Status: F Test: BLOOD, URINE BLOOD; Value: NEGATIVE; Range: NEGATIVE; Status: F Test: WBC, URINE AUTO; Value: 1; Range: 0-3; Units: /HPF; Status: F Test: RBC, URINE AUTO; Value: 3; Range: 0-3; Units: /HPF; Status: F Test: BACTERIA, URINE AUTO; Value: NEGATIVE; Range: NEGATIVE; Status: F Test: SQUAMOUS EPITHELIAL CELL UR AU; Value: 0; Range: 0-6; Units: /HPF; Status: F Test: MUCUS, URINE; Value: SMALL; Range: NEGATIVE; Status: F Test: HYALINE CAST, URINE AUTO; Value: 0; Range: 0-1; Units: /LPF; Status: F Lab Order: Urine Culture; SPEC'M 10/16/16 04:52 Test: URINE CULTURE; Value: URINE CULTURE RESULT NO GROWTH; Status: F Radiology Order: CT ABD & PELVIS: IV and Oral Contrast Test: CT ABD & PELVIS: IV and Oral Contrast REASON FOR EXAMINATION: Abdomen Pain; CT abdomen and pelvis with IV and oral contrast 10/16/2016; ; Indication: Lower abdominal pain; ; Comparison: None; ; Technique: After drinking two cups of oral contrast, each containing 10 ml; gastrographin, 100 ml Isovue 370 mg/ml was injected intravenously. 3 mm spiral; axial sections were performed through the abdomen and pelvis; ; Findings: small amount of parenchymal disease within the anterior medial aspect; of the right middle lobe is consistent with atelectasis and/or scarring.; ; Liver, spleen, pancreas, gallbladder are within normal limits. There is no; biliary dilatation. Adrenal glands are normal. Kidneys are without; hydronephrosis or obstructing ureteral calculi bilaterally. There is moderate; gastric distension with stomach containing a large amount of oral contrast and; small amount of air. The small bowel is without obstruction. There are multiple; fluid-filled loops of small bowel , less than 3 cm in diameter. The terminal; ileum and distal ileum are fluid-filled. The appendix is without inflammation .; Abdominal aorta is of normal course and caliber. There are few ileocolic lymph; nodes which are nonspecific. There is small amount of fluid and under distension; seen throughout colon with minimal generalized mural thickening. There is an; air-fluid level within the rectosigmoid colon. There is no free air or ascites.; ; Impression; 1. Findings most compatible with a gastroenteritis with gastric distension,; fluid-filled loops of small bowel, under distended colon likely in spasm, with; mild generalized mural thickening. There is also an air-fluid level in the; rectosigmoid colon. No free air or ascites.; 2. Unremarkable appendix and gallbladder; ; 3. Parenchymal disease within the anterior medial aspect of right middle lobe; most compatible with atelectasis and/or scarring; ; ; Signed by; Mirta Powell MD 10/16/2016 10:05 A; Outcome: 07:13 Discharge ordered by Provider. br1 10:10 Discharge ordered by Provider. br1 10:23 Discharge Assessment: patient administered narcotics - yes. The following High Risk [facility] Discharge criteria are identified: None. Discharged to home ambulatory, with friend. Condition: stable. Discharge instructions given to patient, Instructed on discharge instructions, follow up and referral plans. medication usage, Prescriptions given X 1. CT Study completed. Property :Personal belongings accompany Pt. 10:26 Patient left the ED. [facility] Signatures: Dispatcher [employer] EDMS Anthony Cadena RN LUCIO bcEdwin Lange RN RN cz Ganter, LoriLee, Reg Reg lg Elier,Rodger,PAPER PRODUCTION ENGINEER PAPER PRODUCTION ENGINEER rw1 Demetris Grant MD MD br1 Rita Alvarenga, REFRACTIVE SURGEON REFRACTIVE SURGEON ar3 Daniella Angulo, RN RN jc4 Nicyk Lange, REFRACTIVE SURGEON REFRACTIVE SURGEON Noris Tejada,Lasha Bangura RN, Gabriela gjb Redder, Kathie klr Anderson, JessicaRN RN ja5 Chart Complete MTDD
--- NOTE | 2016-10-18 11:27 | EDDOCDS ---
Physician Documentation [facility] Name: Gary Chapman Age: 21 yrs Sex: Male : 1995 Arrival Date: 10/16/2016 Time: 03:47 Bed 12 Private MD: Disposition: 10/16/16 10:10 Discharged to Home/Self Care. Impression: Nausea and vomiting, Diarrhea, unspecified. - Condition is Stable. - Discharge Instructions: Diarrhea, Nausea and Vomiting. - Prescriptions for ZOFRAN ODT 4 mg - dissolve 1 tablet by ORAL route 4 times per day As needed do not chew, do not swallow whole; 10 tablet. - Medication Reconciliation, Local Pharmacy Hours form. - Follow up: [facility] Lopez; When: 2 - 3 days; Reason: Recheck today's complaints. - Problem is new. - Symptoms have improved. - Notes: You were seen in the ED for nausea, vomiting and diarrhea concerning for a gastroenteritis or possible viral illness. Bloodwork along with urine tests showed no other acute findings. You may continue the nausea medicine Zofran as needed. Encourage plenty of clear liquids to maintain hydration.Once tolerating liquids begin a dry bland diet and advance as tolerated. Call your primary doctor at [facility] to arrange to be seen for recheck this week. Return to the ED for any abdominal pain, fever, inability to tolerate oral foods or liquids, blood in the vomit or stool or any other concerns. Historical: - Allergies: No known drug Allergies; - Home Meds: 1. none - PMHx: none; - PSHx: none; - Social history: Smoking status: Patient states was never smoker of tobacco. No barriers to communication noted, The patient speaks fluent French, Speaks appropriately for age. - Family history: Not pertinent, No immediate family members are acutely ill. - : The pt / caregiver states he / she is not on anticoagulants. Home medication list is obtained from the patient. - Exposure Risk Screening:: None identified. Vital Signs: 10/16 03:58 BP 110 / 66; Pulse 112; Resp 16; Temp 99.8(TE); Pulse Ox 96% on R/A; Weight 74.39 kg / cz 164 lbs; Height 5 ft. 5 in. (165.10 cm); 07:16 BP 99 / 50; Pulse 96; Resp 16; Temp 101(O); Pulse Ox 95% ; Pain 3/10; ja5 08:44 BP 106 / 54; Pulse 98; Resp 16; Temp 98.5(O); Pulse Ox 99% ; Pain 0/10; ja5 10:21 BP 106 / 52 RA Supine (auto/lg); Pulse 90; Resp 16; Temp 98.7(O); Pulse Ox 96% on R/A; tk Pain 0/10; 03:58 Body Mass Index 27.29 (74.39 kg, 165.10 cm) cz MDM: 04:07 Undress patient appropriately for examination ordered. sep 04:07 IV Saline Lock ordered. sep 04:08 Amylase Ordered. EDMS 04:08 Basic Metabolic Profile Ordered. EDMS 04:08 CBC with Diff Ordered. EDMS 04:08 Lipase Ordered. EDMS 04:08 Liver Profile Ordered. EDMS 04:08 Urinalysis Ordered. EDMS 04:08 Urine Culture Ordered. EDMS 04:08 NOTHING BY MOUTH+DIET ordered. EDMS 07:05 Ondansetron ODT Oral Disintegrating Tablet 4 mg PO once ordered. br1 07:08 Recheck Vital Signs, perform reassessment and enter into Sighter ordered. br1 07:10 Basic Metabolic Profile Reviewed. br1 07:10 CBC with Diff Reviewed. br1 07:10 Lipase Reviewed. br1 07:10 Urinalysis Reviewed. br1 07:10 Amylase Reviewed. br1 07:10 Liver Profile Reviewed. br1 07:24 NS 0.9% 1000 ml IV at bolus once ordered. br1 07:24 Acetaminophen Tablet 650 mg PO once ordered. br1 07:26 NS 0.9% 1000 ml IV at 150 mL/hr continuous ordered. br1 07:26 CT ABD & PELVIS: IV and Oral Contrast Ordered. EDMS 07:33 Diatrizoate Meglumine & Sodium Liquid 10 ml PO once; mix in 290cc of water, administer jc4 dose \T\ 0745 ordered. 07:33 Diatrizoate Meglumine & Sodium Liquid 10 ml PO once; mix in 290cc of water, administer jc4 dose \T\ 0815 ordered. 08:54 Financial registration complete. lg 09:43 [facility] Payment Agreement was scanned into [employer] and attached to record. lg 21:04 T-Sheet-- Draft Copy was scanned into [employer] and attached to record. klr Administered Medications: 07:19 Drug: Ondansetron ODT 4 mg [ondansetron 4 mg disintegrating tablet (1 tabs)] Route: PO; ja5 07:24 Drug: NS 0.9% 1000 ml [sodium chloride 0.9 % intravenous solution] Route: IV; Rate: jc4 bolus; Site: left antecubital; 09:20 Follow up: IV Status: Completed infusion; IV Intake: 1000ml jc4 07:36 Drug: Acetaminophen 650 mg [acetaminophen 325 mg tablet (2 tabs)] Route: PO; jc4 08:44 Follow up: BP 106 / 54; Pulse 98 bpm; Resp 16 bpm; Temp 98.5 Oral; Pulse Ox 99% ; Pain ja5 0/10 Adult 07:50 Drug: Diatrizoate Meglumine & Sodium 10 ml [diatrizoate meglumine and diat.sodium 66 jc4 %-10 % oral solution (10 mL)] Route: PO; 08:25 Drug: Diatrizoate Meglumine & Sodium 10 ml [diatrizoate meglumine and diat.sodium 66 jc4 %-10 % oral solution (10 mL)] Route: PO; 09:19 Drug: NS 0.9% 1000 ml [sodium chloride 0.9 % intravenous solution] Route: IV; Rate: 150 jc4 mL/hr; Site: left antecubital; Signatures: Dispatcher MedHo EDMS Anthony Cadena RN RN bcj Newman, LUCIO Coe RN, Calvin, RN RN cz Ganter, LoriLee, Reg Reg Demetris Grant MD MD brDaniella Quispe RN RN jc4 Booth, Mandy, RN RN mlc Redder, Kathie klr Anderson, Jessica RN ja5 The chart was reviewed and I authenticate all verbal orders and agree with the evaluation and treatment provided.Corrections: (The following items were deleted from the chart) 07:30 07:05 Fluid Challenge ordered. br1 jc4 Attachments: 09:43 [facility] Payment Agreement lg 21:04 T-Sheet-- Draft Copy r Chart Complete MTDD
== END 2016-10-16 10:26 | disposition home or self-care (01) ==
LOC: M ED 03:47
DX: R11.2 Nausea with vomiting, unspecified (principal); R19.7 Diarrhea, unspecified
CPT/HCPCS: 36415; 74177; 80048; 80076; 81001; 82150; 83690; 85025; 87086; 96360; 96361; 99284; Q9963; Q9967